=== PATIENT | male | born 1970 | race Caucasian/White ===

== ENCOUNTER 2016-09-28 | Emergency (ER) | payer BC ==
[~2016-09-28] VITALS: Ht 167.6 cm; Wt 73.7 kg
[2016-09-28 00:10] VITALS: TEMP 99; Ht 167.6 cm; Wt 73.7 kg
[2016-09-28] MEDS ORDERED: PRAVASTATIN PO (00:32)
[2016-09-28 01:32] LABS: BASOPHILS % (AUTO) 0.2 % (0-2); EOSINOPHILS # (AUTO) 0.1 T/MM3 (0-0.5); EOSINOPHILS % (AUTO) 1.6 % (0-4); HCT - HEMATOCRIT 41.3 % (41-53); HGB - HEMOGLOBIN 14.5 GM/DL (13.5-17.5); MEAN CORPUSCULAR HGB 29.4 UUG (26-34); MEAN CORPUSCULAR HGB CONC(MCHC 35.1 GM/DL (31-37); MEAN CORPUSCULAR VOLUME 83.6 UM3 (80-100); MEAN PLATELET VOLUME 11.5 UM3 (9.4-12.4); MONOCYTES # (AUTO) 0.4 T/MM3 (0-0.8); MONOCYTES % (AUTO) 7.7 % (0-9.0); NEUTROPHILS #(AUTO)-ABSOLUTE 2.5 T/MM3 (1.8-7.7); NEUTROPHILS % (AUTO) 50.5 % (33-66); RED BLOOD COUNT 4.94 M/MM3 (4.50-5.90); WBC - WHITE BLOOD COUNT 4.9 T/MM3 (4.5-11.0)
[2016-09-28 01:37] LABS: ALBUMIN 4.4 G/DL (3.5-5.0); ALBUMIN/GLOBULIN RATIO 1.8 RATIO (1.1-2.2); ALKALINE PHOSPHATASE 86 U/L (38-126); ALT (SGPT) 54 U/L (21-72); ANION GAP 12 MEQ/L (5-15); AST (SGOT) 33 U/L (17-59); BUN/CREATININE RATIO 23 RATIO (6-26); CALCIUM 9.2 MG/DL (8.4-10.2); CHLORIDE 105 MEQ/L (98-107); CO2 - CARBON DIOXIDE 27 MEQ/L (22-30); GLOMERULAR FILTRATION RATE 82; GLUCOSE 111 MG/DL (75-110); POTASSIUM 3.6 MEQ/L (3.6-5); SODIUM 144 MEQ/L (134-144); TOTAL PROTEIN 6.9 G/DL (6.3-8.2)
--- NOTE | 2016-09-28 01:44 | ERPDOC ---
Departure Disposition Decision Date: September 28, 2016 Disposition Decision Time: 01:45 Disposition: 01 DISCHARGED HOME, SELF-CARE Impression Impression Impression: Primary Impression: Depression Additional Impression: Anxiety Severity: Moderate Condition: Improved Seen By: Physician only Patient Instructions: Generalized Anxiety Disorder (DC) Problems/Meds/Labs Reviewed?: Yes Medications reviewed and manag: Yes Additional Instructions: Recommend you start Lexapro 10 mg tablet daily. Follow-up with primary care provider. Follow up care ordered?: Yes Mental Status: Alert, Oriented Scripts Escitalopram Oxalate (Lexapro) 10 Mg Tablet 1 TAB PO DAILY for 30 Days, #30 TAB 9 Refills Prov: STEFFANY PETERS MD 09/28/16 HPI - General Medical General Chief Complaint: Acute Medical Problem Stated Complaint: NUMBNESS ALL OVER BODY Time Seen by Provider: 01:09 HPI - General Medical Initial Comments 45-year-old male with numbness and tingling as he was going to sleep tonight. He presents to the ED for evaluation. He is under a lot of stress, has very emotional. 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 Patient has no suicidal or homicidal ideation, does not want to harm himself. He has 4 children part of his family is in the [place] and part in [place]. He is working about 60 hours a week, and only sleeping about 4 hours a night. He feels like he is overwhelmed and exhausted. We did a full review of systems and he has no other physical complaints. Allergies: Coded Allergies: NKDA (Verified Allergy, Unknown, 09/28/16) Past History Patient Medical History Problem List Updates: Hyperlipidemia Patient Surgical History Negative Surgical History Denies Surgeries Family History Family PMH: FOUND: diabetes, hypertension Social History Smoking Status: Never smoker Substance Use Type: does not use Record Review Pertinent history updated: Yes Review of Systems Psychiatric Psychiatric: see HPI All other Systems All Other Systems: Reviewed and Negative Physical Exam General General Nourishment: well nourished, well developed, appears stated age Distress Description Patient is emotional Vitals and Pain Weight: Kilograms: Height (feet): Height (inches): Triage Pain Scale: Normal Exams: Head: Normocephalic w/o trauma Neck: Full range of motion, without adenopathy, JVD, bruits or thyromegaly Chest/Resp: Clear all christine, with good airflow, and symmetry bilaterally CV: Regular rate and rhythm, without murmur or gallop, Pulses 2+ all extremities, capillary refill, <2 seconds all ext., no pedal edema noted Abdomen: Bowel sounds positive, soft, non-tender, non-distended, no hepatosplenomegaly, masses or bruits noted Neurologic: Patient is alert, and oriented, cranial nerves, motor/sensory/ cerebellar, exams w/o gross deficits, to observation Differential Diagnoses Considering: Other (hyperventilation, anxiety, depression) Progress Results/Orders Orders Procedure Category Date Status Time Cbc W/Auto LAB 09/28/16 Complete Diff-Reflex Manual Cmp - Comprehensive LAB 09/28/16 In Process Metabolic Tsh - Thyroid Stim LAB 09/28/16 In Process Hormone Lab Results Laboratory Tests Test 09/28/16 01:21 White Blood Count 4.9T/MM3 Red Blood Count 4.94M/MM3 Hemoglobin 14.5GM/DL Hematocrit 41.3% Mean Corpuscular Volume 83.6UM3 Mean Corpuscular Hemoglobin 29.4UUG Mean Corpuscular Hemoglobin Concent 35.1GM/DL RDW Standard Deviation 38.8FL Platelet Count 130T/MM3 Mean Platelet Volume 11.5UM3 Immature Granulocyte % (Auto) 0.0% Neutrophils (%) (Auto) 50.5% Lymphocytes (%) (Auto) 40.0% Monocytes (%) (Auto) 7.7% Eosinophils (%) (Auto) 1.6% Basophils (%) (Auto) 0.2% Absolute Immature Granulocyte (auto 0.00T/MM3 Absolute Neutrophils (auto) 2.5T/MM3 Absolute Lymphocytes (auto) 2.0T/MM3 Absolute Monocytes (auto) 0.4T/MM3 Absolute Eosinophils (auto) 0.1T/MM3 Absolute Basophils (auto) 0.0T/MM3 Turbidity < 20 Sodium Level 144MEQ/L Potassium Level 3.6MEQ/L Chloride Level 105MEQ/L Carbon Dioxide Level 27MEQ/L Anion Gap 12MEQ/L Blood Urea Nitrogen 23.0MG/DL Creatinine 1.0MG/DL Glomerular Filtration Rate Calc 82 BUN/Creatinine Ratio 23RATIO Glucose Level 111MG/DL Calculated Osmolality 282MOSM/KG Calcium Level 9.2MG/DL Total Bilirubin 0.40MG/DL Icterus Index < 2 Aspartate Amino Transf (AST/SGOT) 33U/L Alanine Aminotransferase (ALT/SGPT) 54U/L Alkaline Phosphatase 86U/L Total Protein 6.9G/DL Albumin 4.4G/DL Globulin 2.5G/DL Albumin/Globulin Ratio 1.8RATIO Thyroid Stimulating Hormone (TSH) Pending Chemistry Specimen Hemolysis < 15 Progress Progress Labs return appropriately. Patient is diagnosed with anxiety and depression. We discussed options of medications, he would like to try Lexapro which I think is very reasonable. He was started on Lexapro 10 mg daily. Discussed options of exercise, mental health. STEFFANY PETERS MD September 28, 2016 01:44
[2016-09-28] MEDS ORDERED: ESCI10TA PO (01:47)
[2016-09-28 02:08] LABS: THYROID STIM HORMONE-TSH 1.98 MIU/L (0.47-4.68)
[2016-09-28 02:15] VITALS: BP 128/90; PULSE 71; RESP 16; O2SAT 98
--- NOTE | 2016-09-28 02:15 | NUR ---
DEPART PT IS DISCHARGED AT THIS TIME, INSTRUCTIONS ARE REVIEWED AND UNDERSTANDING IS VOICED. PT LEAVES AMBULATORY.
== END 2016-09-28 02:15 | disposition home or self-care (01) ==
LOC: ED
DX: F41.8 Other specified anxiety disorders (principal)
CPT/HCPCS: 36415; 80053; 84443; 85025